=== PATIENT | male | born 2000 | race Hispanic/Latino ===

== ENCOUNTER 2021-10-01 03:28 | Emergency (ER) | payer OTHER ==
[2021-10-01] MEDS ORDERED: Proparacaine 0.5% Opth 15 ML BOT ONE (03:47)
[2021-10-01] MEDS ORDERED: Fluorescein Opthalmic Strip ONE (03:47)
== END 2021-10-01 04:15 | disposition home or self-care (01) ==
LOC: ERS 03:28
DX: H10.213 Acute toxic conjunctivitis, bilateral (principal)
CPT/HCPCS: 99283